=== PATIENT | female | born 1950 | race Caucasian/White ===

== ENCOUNTER → 2018-02-20 | Outpatient (CLI) | payer MEDICARE ==
--- NOTE | 2018-02-20 14:34 | CT ---
EXAMINATION TYPE: CT abdomen pelvis wo con DATE OF EXAM: 02/20/2018 HISTORY: Hematuria and right lower quadrant pain per order CT DLP: 567 mGycm. Automated Exposure Control for Dose Reduction was Utilized. TECHNIQUE: CT scan of the abdomen and pelvis is performed without oral or IV contrast. COMPARISON: NONE FINDINGS: Within the limitations of a non-contrast study, the following observations are made. LUNG BASES: No significant abnormality is appreciated. LIVER/GB: Cholecystectomy clips are felt present near maggy hepatis. Prominent right hepatic lobe is seen, normal variant. PANCREAS: Poor visualization of pancreas which appears somewhat heterogeneous on noncontrast study. SPLEEN: No significant abnormality is seen. ADRENALS: Low dense thickening to both adrenal glands favors benign hyperplasia.. KIDNEYS: Symmetric central calcifications of both kidneys, favor vascular calcification, cannot exclu de nonobstructing renal calculi. No hydronephrosis or obstructing ureter calculi clearly seen. Phlebo liths along course of ureters are present. BOWEL: Diverticula are scattered throughout the colon. No CT evidence for acute diverticulitis. Cecum is low lying and wandering into the left pelvis. No suspicious small bowel dilatation is present. GENITAL ORGANS: Uterus is surgically absent or markedly atrophic. Scattered prominent pelvic phleboli ths are seen bilaterally. LYMPH NODES: No greater than 1cm abdominal or pelvic lymph nodes are appreciated. OSSEOUS STRUCTURES: Moderate narrowing and bilateral hip joints is present. Moderate disc space narro wing lumbosacral junction is seen. OTHER: Inferior and posterior to the coccyx there is prominent rounded hypodense material probable ca lcification, distal coccyx is sclerotic. Etiology uncertain. Perhaps dystrophic calcifications or sof t tissue foreign body, injection granulomas unlikely but not excluded. Moderate to severe calcified p laque of aorta extends into branch vessels. IMPRESSION: 1. Cannot exclude bilateral nonobstructing renal calculi versus vascular calcifications. Follow-up CT urogram could be performed to further assess if desired. 2. Colonic diverticulosis without convincing CT evidence for acute diverticulitis.
== END | disposition home or self-care (01) ==
LOC: RADCTMAIN 13:45
PROVIDERS: ATTEND Nurse Practitioner
DX: K57.30 Diverticulosis of large intestine without perforation or abscess without bleeding (principal)
CPT/HCPCS: 74176

== ENCOUNTER 2018-08-25 20:12 | Emergency (ER) | payer MEDICARE ==
[2018-08-25 20:29] VITALS: BP 119/73; PULSE 70; RESP 18; TEMP 99.9
[2018-08-25 21:28] LABS: Appearance,Urine Cloudy (Clear); Bilirubin,Urine Negative (Negative); Blood,Urine Large (Negative); Color,Urine Dark Red; Glucose,Urine (UA) Negative (Negative); Ketones,Urine Negative (Negative); Leukocyte Esterase,Urine Moderate (Negative); Nitrite,Urine Negative (Negative); PH, Urine 6.5 (5.0-8.0); Protein,Urine 2+ (Negative); RBC,Urine >182 /hpf (0-5); Specific Gravity,Urine 1.014 (1.001-1.035); Squamous Epithelial Cell,Urine 2 /hpf (0-4); Urobilinogen,Urine <2.0 mg/dL (<2.0)
--- NOTE | 2018-08-25 21:28 | ED ---
Female Urogenital HPI - General Chief complaint: Vaginal Bleeding Stated complaint: Blood in urine Time Seen by Provider: 08/25/18 21:24 Source: patient Mode of arrival: ambulatory Limitations: no limitations - History of Present Illness Initial comments: Martha is a 68-year-old female presents the emergency department today for reevaluation of hematuria. Patient was seen and evaluated by her primary care physician on Saturday at which time she was diagnosed with a urinary tract infection and prescribed Bactrim, patient took this on Saturday and throughout the weekend however today she developed hematuria and followed up with her PCP again. At this time repeat urinalysis was obtained by the PCP and she was prescribed Macrobid. Patient has taken one dose of Macrobid however she's noticed clots in her urine which prompted her to come to the ER for reevaluation. Patient denies any associated fevers, chills, flank pain, nausea or vomiting. - Related Data Home Medications Medication Instructions Recorded Confirmed Atorvastatin [Lipitor] 10 mg PO HS 01/06/14 08/25/18 Lisinopril [Zestril] 10 mg PO HS 01/06/14 08/25/18 Loperamide [Imodium] 4 mg PO Q4H PRN 01/06/14 08/25/18 metFORMIN HCL [Glucophage] 500 mg PO HS 01/06/14 08/25/18 Acetaminophen [Tylenol] 1,000 mg PO Q4-6H PRN 08/25/18 08/25/18 Aspirin EC [Ecotrin Low Dose] 81 mg PO DAILY 08/25/18 08/25/18 Nitrofurantoin Monohyd/M-Cryst 100 mg PO Q12HR 08/25/18 08/25/18 [Macrobid] amLODIPine BESYLATE [Norvasc] 10 mg PO HS 08/25/18 08/25/18 Allergies Allergy/AdvReac Type Severity Reaction Status Date / Time No Known Allergies Allergy Verified 08/25/18 21:51 Review of Systems ROS Statement: Those systems with pertinent positive or pertinent negative responses have been documented in the HPI. ROS Other: All systems not noted in ROS Statement are negative. Past Medical History Past Medical History: Diabetes Mellitus, Hypertension Additional Past Medical History / Comment(s): ANAL CANCER-CHEMO & RADIATION 1995, History of Any Multi-Drug Resistant Organisms: None Reported Past Surgical History: Bowel Resection, Cholecystectomy, Hysterectomy Past Anesthesia/Blood Transfusion Reactions: No Reported Reaction Past Psychological History: No Psychological Hx Reported Smoking Status: Current every day smoker Past Alcohol Use History: Rare Past Drug Use History: None Reported General Exam - General Exam Comments Initial Comments: Physical Exam GENERAL: Patient is well-developed and well-nourished. Patient is nontoxic and well- hydrated and is in no distress. HENT: Normocephalic, Atraumatic. EYES: PERRL, EOMI PULMONARY: Unlabored respirations. No audible rales rhonchi or wheezing was noted. CARDIOVASCULAR: There is a regular rate and rhythm without any murmurs gallops or rubs. ABDOMEN: Soft and nontender with normal bowel sounds. Tenderness to palpation in suprapubic region SKIN: Skin is clear with no lesions or rashes and otherwise unremarkable. : Deferred NEUROLOGIC: Patient is alert and oriented x3. Moving all extremities spontaneously MUSCULOSKELETAL: Normal extremities with adequate strength and full range of motion. No lower extremity swelling or edema. No calf tenderness. PSYCHIATRIC: Normal psychiatric evaluation Limitations: no limitations Course Vital Signs 08/25/18 20:25 Temperature 99.9 F H Pulse Rate 70 Respiratory 18 Rate Blood Pressure 119/73 O2 Sat by Pulse 97 Oximetry Medical Decision Making - Medical Decision Making I attempted to evaluate the patient multiple times. Each time she was noted to be in the restroom, upon my evaluation the patient reports that she has continuous sensation of needing to urinate. She is producing grossly bloody urine. Patient denies any vaginal bleeding or bleeding from the vaginal canal. Repeat urinalysis here is consistent with urinary tract infection with gross hematuria, culture was obtained A single dose of Rocephin will be given as well as by mouth Pyridium, patient has tolerated this in the past but was unaware if she could take it in the setting She reported resolution of her urinary frequency and dysuria after taking Pyridium. She does have Pyridium at home does not need a prescription. At this time patient stable for discharge home and outpatient follow-up. She will contact her PCP tomorrow to follow up on urine culture results from Saturday. - Lab Data Lab Results 08/25/18 Range/Units 20:29 Urine Color Dark Red Urine Appearance Cloudy H (Clear) Urine pH 6.5 (5.0-8.0) Ur Specific [place] 1.014 (1.001-1.035) Urine Protein 2+ H (Negative) Urine Glucose (UA) Negative (Negative) Urine Ketones Negative (Negative) Urine Blood Large H (Negative) Urine Nitrite Negative (Negative) Urine Bilirubin Negative (Negative) Urine Urobilinogen <2.0 (<2.0) mg/dL Ur Leukocyte Esterase Moderate H (Negative) Urine RBC >182 H (0-5) /hpf Urine WBC 104 H (0-5) /hpf Ur Squamous Epith Cells 2 (0-4) /hpf Disposition Clinical Impression: Urinary tract infection with hematuria Disposition: HOME SELF-CARE Condition: Stable Instructions (If sedation given, give patient instructions): Urinary Tract Infection in Women (DC) Is patient prescribed a controlled substance at d/c from ED?: No Referrals: Shanon Gauthier DO [Primary Care Provider] - 1-2 days
[2018-08-25] MEDS ORDERED: SODIUM CHLORIDE 0.9% 500 ML 500 ML IV ONE (22:31)
[2018-08-25] MEDS ORDERED: cefTRIAXone IN SWFI 1,000 MG/10 ML SYRINGE IVP STA (22:31)
[2018-08-25] MEDS ORDERED: PHENAZOPYRIDINE 100 MG TAB PO STA (22:34)
== END 2018-08-25 23:53 | disposition home or self-care (01) ==
LOC: EC 20:12
DX: N39.0 Urinary tract infection, site not specified (principal); E11.9 Type 2 diabetes mellitus without complications; I10 Essential (primary) hypertension; F17.200 Nicotine dependence, unspecified, uncomplicated; Z85.048 Personal history of other malignant neoplasm of rectum, rectosigmoid junction, and anus; Z79.82 Long term (current) use of aspirin; Z79.84 Long term (current) use of oral hypoglycemic drugs; Z79.899 Other long term (current) drug therapy; Z90.710 Acquired absence of both cervix and uterus
CPT/HCPCS: 81001; 87086; 99284; 96374; J0696

== ENCOUNTER → 2018-09-01 | Outpatient (CLI) | payer MEDICARE ==
--- NOTE | 2018-09-01 13:58 | US ---
EXAMINATION TYPE: US carotid duplex BILAT DATE OF EXAM: 09/01/2018 COMPARISON: NONE CLINICAL HISTORY: R42. Dizziness Giddiness. Left facial numbness then has syncopal episode x 2 episo nasir in past 6 months; smoker x 54 years EXAM MEASUREMENTS: RIGHT: Peak Systolic Velocity (PSV) cm/sec ----- Right CCA: 82.3 ----- Right ICA: 82.4 ----- Right ECA: 199.6 ICA/CCA ratio: 1.1 RIGHT: End Diastole cm/sec ----- Right CCA: 32.8 ----- Right ICA: 25.6 ----- Right ECA: 21.2 LEFT: Peak Systolic Velocity (PSV) cm/sec ----- Left CCA: 83.2 ----- Left ICA: 93.5 ----- Left ECA: 162.7 ICA/CCA ratio: 1.1 LEFT: End Diastole cm/sec ----- Left CCA: 33.9 ----- Left ICA: 39.7 ----- Left ECA: 20.9 VERTEBRALS (direction of flow): Right Vertebral: Antegrade Left Vertebral: Antegrade Rhythm: Normal Moderate, irregular mixed plaque is noted at bilateral carotid bifurcation with abnormally elevated P SV in Bilateral ECA. IMPRESSION: No hemodynamically significant stenosis within either internal carotid artery nor common carotid artery however moderate grayscale plaquing is seen at the carotid bulbs creating bilateral s tenosis of 50-69% within the external carotid arteries. Criteria for Assigning % of Stenosis / Diameter reduction (Estimation based on the indirect measurements of the internal carotid artery velocities (ICA PSV). 1. Normal (no stenosis)=ICA PSV < 125 cm/s: ratio < 2.0: ICA EDV<40 cm/s. 2. Less than 50% stenosis=ICA PSV < 125 cm/s: ratio < 2.0: ICA EDV<40 cm/s. 3. 50 to 69% stenosis=ICA PSV of 125 to 230 cm/s: ration 2.0 ? 4.0: ICA EDV 40-100 cm/s. 4. Greater than 70% stenosis to near occlusion= ICA PSV > 230 cm/s: ratio > 4.0: ICA EDV > 100 cm/s. 5. Near occlusion= ICA PSV velocities may be low or undetectable: variable ratio and ICA EDV. 6. Total occlusion=unable to detect flow.
== END | disposition home or self-care (01) ==
LOC: RADUSWWP 12:22
PROVIDERS: ATTEND Family Medicine
DX: I65.23 Occlusion and stenosis of bilateral carotid arteries (principal)
CPT/HCPCS: 93880

== ENCOUNTER → 2018-10-01 | Outpatient (CLI) | payer MEDICARE ==
--- NOTE | 2018-10-01 19:47 | CT ---
EXAMINATION TYPE: CT urogram wo/w con DATE OF EXAM: 10/01/2018 HISTORY: Gross hematuria and low back pain. CT DLP: 2779mGycm Automated Exposure Control for Dose Reduction was Utilized. CONTRAST: CT scan of the abdomen and pelvis is performed without and with IV Contrast, patient injected with 10 0ml mL of Isovue 300. COMPARISON: 02/20/2018 FINDINGS: LUNG BASES: No significant abnormality is appreciated. LIVER/GB: Postcholecystectomy changes noted with mild central intrahepatic dilation.. PANCREAS: No significant abnormality is seen. SPLEEN: No significant abnormality is seen. ADRENALS: No significant abnormality is seen. KIDNEYS: There are no renal masses. Right kidney: There is 5 calcifications involving the right kidney with no hydronephrosis the largest measures a diameter of 2 mm. Left kidney: There are 4 3 mm or less left-sided renal calculi with no hydronephrosis. Ureters: Ureters appear to be of normal course and caliber with no evidence of filling defect. Bladder: Delayed imaging demonstrates incompletely distended bladder. This limits assessment of wall thickness. No evidence of filling defect as visualized. BOWEL: There are few prominent small bowel loops which are fluid-filled within the pelvis. Diverticul osis of the colon noted. LYMPH NODES: No greater than 1cm abdominal or pelvic lymph nodes are appreciated. OSSEOUS STRUCTURES: Degenerative change of the spine and arthropathy of the hips. There is dense calcification at the level of the coccyx. This extends into the soft tissues and measu res approximately 3.7 cm. This is stable. Tarlov cyst involving the sacrum noted. OTHER: There is atherosclerotic changes aorta with no evidence of aneurysm. Atherosclerotic change of the SMA seen with eccentric plaque. Significant stenosis is not excluded.. Uterus is surgically abse nt. IMPRESSION: 1. Bilateral nonobstructing nephrolithiasis. Calcifications measure in diameter less than 5 mm. 2. Large area of calcification near the lower margin of the coccyx is stable relative the prior exam could represent dystrophic calcification from prior injury or infection. Correlate with point tendern ess. If the patient experiences pain in this region consider MRI of the sacrum and coccyx. 3. Postcholecystectomy changes. 4. Eccentric atherosclerotic plaque involving the SMA. Significant stenosis in the differential diagn osis. 5. Fluid-filled prominent small bowel loops in the pelvis may represent an ileus correlate clinically to exclude enteritis.
== END | disposition home or self-care (01) ==
LOC: RADCTMAIN 16:00
PROVIDERS: ATTEND Urology
DX: N20.0 Calculus of kidney (principal); R31.0 Gross hematuria
CPT/HCPCS: 36415; 74178; 74400; 82565; 84520

== ENCOUNTER 2019-03-12 07:31 | Day surgery (SDC) | payer MEDICARE ==
[~2019-03-12 07:31] MED LIST: LACTATED RINGERS 1,000 ML IV SCH; LIDOCAINE 1% 20 ML VIAL (10MG/ML) FOR IV START INTRADERMA PRN
[2019-03-12 07:54] VITALS: TEMP 97.6
[2019-03-12 08:02] LABS: Glucose,Whole Blood 136 mg/dL (75-99)
[2019-03-12] MEDS ORDERED: PROPOFOL 10 MG/ML 20 ML VIAL IV ONE (08:15)
[2019-03-12 09:01] VITALS: RESP 14
--- NOTE | 2019-03-12 09:01 | P.PCN ---
Date of Procedure: 03/12/19 Description of Procedure: BRIEF HISTORY: Patient is a 68-year-old female presenting for outpatient colonoscopy for a personal history of colon polyps. Patient reports polypectomy on previous colonoscopies. Last colonoscopy 5 years ago. No change in bowel habits, blood per rectum or abdominal pain reported. PROCEDURE PERFORMED: Colonoscopy with polypectomy. PREOPERATIVE DIAGNOSIS: Personal history of colon polyps, last colonoscopy 5 years ago. ESTIMATED BLOOD LOSS: Minimal. IV sedation per Anesthesia. PROCEDURE: After informed consent was obtained, the patient, was brought into the endoscopy unit. IV sedation was administered by Anesthesia under continuous monitoring. Digital rectal examination was normal. Initially the Olympus CF-190 flexible video colonoscope was then inserted in the rectum, gradually advanced into the cecum without any difficulty. Careful examination was performed as the scope was gradually being withdrawn. Ileocecal valve and the appendiceal orifice were visualized and appeared normal. Prep was excellent. Mucosa of the cecum, ascending colon, transverse colon, descending colon, sigmoid colon, and rectum appeared normal. Moderate pandiverticulosis noted. Flat 3 mm cecal polyp removed with cold forcep polypectomy. 12 mm sessile ascending colon polyp removed with cold snare polypectomy. Diminutive 1 mm hepatic flexure polyp removed with cold forcep polypectomy. Retroflexion was performed in the rectum and no lesions were seen. The patient tolerated the procedure well. IMPRESSION: 2 polyps removed from the cecum and hepatic flexure with cold forcep polypectomy. 12 mm ascending colon polyp removed with cold snare polypectomy. Moderate pandiverticulosis. RECOMMENDATIONS: Findings of this examination were discussed with the patient her sister. Okay to resume diet. Okay to resume medications. Await pathology from polypectomies. Recommend repeat colonoscopy in 3 years for high risk colon polyps.
[2019-03-12 09:15] VITALS: BP 121/70; PULSE 60
== END 2019-03-12 09:34 | disposition home or self-care (01) ==
LOC: ORWHC2ENDO 07:31
PROVIDERS: ATTEND Internal Medicine
DX: D12.2 Benign neoplasm of ascending colon (principal); D12.0 Benign neoplasm of cecum; D12.3 Benign neoplasm of transverse colon; K57.30 Diverticulosis of large intestine without perforation or abscess without bleeding; Z86.010 Personal history of colon polyps; I10 Essential (primary) hypertension; E78.5 Hyperlipidemia, unspecified; E11.9 Type 2 diabetes mellitus without complications; C67.9 Malignant neoplasm of bladder, unspecified; Z72.0 Tobacco use; Z79.84 Long term (current) use of oral hypoglycemic drugs; Z79.899 Other long term (current) drug therapy; Z79.82 Long term (current) use of aspirin; Z79.891 Long term (current) use of opiate analgesic; Z90.49 Acquired absence of other specified parts of digestive tract; Z90.710 Acquired absence of both cervix and uterus; Z98.890 Other specified postprocedural states; Z97.2 Presence of dental prosthetic device (complete) (partial)
CPT/HCPCS: 88305; 45380; 45385; J2704

== ENCOUNTER → 2019-04-14 | Outpatient (CLI) | payer MEDICARE ==
--- NOTE | 2019-04-15 09:18 | BD ---
EXAMINATION TYPE: Axial Bone Density DATE OF EXAM: 04/14/2019 COMPARISON: 05/18/2014 CLINICAL HISTORY: Z 78.0 Height: 63 IN Weight: 183 LBS FRAX RISK QUESTIONS: Secondary Osteoporosis: 3. Menopause before 45: TOTAL HYST AGE 21 Current Tobacco Use: YES RISK FACTORS HISTORY OF: Active: YES Diet low in dairy products/other sources of calcium: YES Postmenopausal woman: TOTAL HYST AGE 21 Take estrogen and/or progesterone medications: NOT NOW How long: TOOK CONTROL FOR 2 YEARS MEDICATIONS: Additional Medications: METFORMIN,BLOOD PRESSURE MEDS, DIABETES MEDS Additional History: COLON CANCER WITH CHEMO AND RADIATION; BLADDER CANCER WITH RADIATION EXAM MEASUREMENTS: Bone mineral densitometry was performed using the DWNLD System. Bone mineral density as measured about the Lumbar spine is: ----- L1-L4(G/cm2): 1.219 T Score Values are as follows: ----- L2: 0.2 ----- L3: 0.3 ----- L4: 1.1 ----- L1-L4: 0.3 Bone mineral density has: Decreased -3.7% since study of: 05/18/2014 Bone mineral density about the R hip (g/cm2): 0.680 Bone mineral density about the L hip (g/cm2): 0.730 T Score values are as follows: -----R Neck: -2.6 -----L Neck: -2.4 -----R Total: -2.3 -----L Total: -2.2 Bone mineral density has: Decreased -9.9% since study of: 05/18/2014 IMPRESSION: Osteoporosis (T Score less than -2.5). There is increased fracture risk and therapy is usually indicated based on age. Re-Screen 1-2 years. NOTE: T-SCORE=SD OF THE YOUNG ADULT MEAN.
--- NOTE | 2019-04-15 11:34 | MM ---
Reason for exam: screening (asymptomatic). Last mammogram was performed 4 years and 11 months ago. History: Patient is postmenopausal, has history of other cancer at age 68, and has history of colon cancer at age 31. Took hormonal contraceptives for 2 years. Physical Findings: A clinical breast exam by your physician is recommended on an annual basis and results should be correlated with mammographic findings. MG 3D Screening Mammo W/Cad Bilateral CC and MLO view(s) were taken. Prior study comparison: May 18, 2014, bilateral MG screening mammo w CAD. The breast tissue is almost entirely fat. No significant changes when compared with prior studies. ASSESSMENT: Benign, BI-RAD 2 RECOMMENDATION: Routine screening mammogram of both breasts in 1 year.
== END ==
LOC: RADMAMWWP 14:44
PROVIDERS: ATTEND Family Medicine
DX: Z12.31 Encounter for screening mammogram for malignant neoplasm of breast (principal); M81.0 Age-related osteoporosis without current pathological fracture; Z78.0 Asymptomatic menopausal state
CPT/HCPCS: 77063; 77067; 77080

== ENCOUNTER → 2019-04-22 | Outpatient (CLI) | payer MEDICARE ==
[~2019-04-22] MED LIST changes: -LACTATED RINGERS 1,000 ML IV SCH; -LIDOCAINE 1% 20 ML VIAL (10MG/ML) FOR IV START INTRADERMA PRN; +REGADENOSON 0.4 MG/5 ML SYRINGE IV ONE
--- NOTE | 2019-04-22 12:23 | EST ---
EXERCISE STRESS DATE OF SERVICE: 04/22/2019 AGE: 69 SEX: Female HT: 5'2" WT: 183 pounds PROTOCOL: Lexiscan Cardiolite STAGE: DURATION OF EXERCISE: HEART RATE REST: 56 BLOOD PRESSURE REST: 107/56 MAXIMUM HEART RATE ACHIEVED: 82 MAXIMUM BLOOD PRESSURE: 111/51 85% MPHR: 128 100% MPHR: 150 METS: INDICATIONS: Chest pain. CLINICAL INFORMATION: This is an Lexiscan stress test. Baseline heart rate 56 beats per minute. Baseline blood pressure 107/56 mmHg. Baseline 12-lead ECG shows sinus rhythm with normal ST segments. The patient received Lexiscan infusion per protocol. No significant change in heart rate or blood pressure. Occasional PVCs noted. No nonsustained ventricular tachycardia. No evidence for ischemia. Nuclear portion will be reported separately. MMODL / IJN: [id number] /
--- NOTE | 2019-04-22 13:26 | NM ---
EXAMINATION TYPE: NM stress lexiscan cardiolite DATE OF EXAM: 04/22/2019 COMPARISON: NONE HISTORY: Carotid bruit TECHNIQUE: After the intravenous administration of 9.3 mCi Tc 99m Sestamibi - Cardiolite resting SPE CT images acquired 75 minutes post injection. The patient received 0.4mg Lexiscan, 24.9 mCi Tc 99m Sestamibi - Stress images obtained [address] injection FINDINGS: No fixed or reversible perfusion defects are evident. Gated wall motion is normal. Ejection fraction of 66% is normal. Polar maps suggest a septal wall defect not identified on the SPECT imaging. IMPRESSION: 1. No stress-induced ischemic changes.
== END | disposition home or self-care (01) ==
LOC: RADNMMAIN 07:53
PROVIDERS: ATTEND Family Medicine
DX: R07.89 Other chest pain (principal)
CPT/HCPCS: 93017; 78452; A9500; J2785

== ENCOUNTER → 2019-10-01 | Outpatient (CLI) | payer MEDICARE ==
--- NOTE | 2019-10-01 14:04 | US ---
EXAMINATION TYPE: US carotid duplex BILAT DATE OF EXAM: 10/01/2019 COMPARISON: US 09/01/2018 CLINICAL HISTORY: R42 Dizziness. EXAM MEASUREMENTS: RIGHT: Peak Systolic Velocity (PSV) cm/sec ----- Right CCA: 80.8 ----- Right ICA: 95.3 ----- Right ECA: 244.4 ICA/CCA ratio: 1.2 RIGHT: End Diastole cm/sec ----- Right CCA: 27.0 ----- Right ICA: 34.4 ----- Right ECA: 34.3 LEFT: Peak Systolic Velocity (PSV) cm/sec ----- Left CCA: 76.2 ----- Left ICA: 121.4 ----- Left ECA: 161.3 ICA/CCA ratio: 1.6 LEFT: End Diastole cm/sec ----- Left CCA: 28.6 ----- Left ICA: 36.6 ----- Left ECA: 35.2 VERTEBRALS (direction of flow): Right Vertebral: Antegrade Left Vertebral: Antegrade Rhythm: Heart rate may be changing during exam, correlate for arrhythmia Grayscale, color Doppler, spectral Doppler imaging performed of the carotid arteries. Waveform analys is does not show significant stenosis of the internal carotid arteries. Moderate amount of plaque vis ualized bilaterally. Elevated velocities visualized within the right ECA and left ECA IMPRESSION: No hemodynamic significant stenosis of the proximal internal carotid arteries by Doppler criteria, an indirect measurement of carotid stenosis Criteria for Assigning % of Stenosis / Diameter reduction (Estimation based on the indirect measurements of the internal carotid artery velocities (ICA PSV). 1. Normal (no stenosis)=ICA PSV < 125 cm/s: ratio < 2.0: ICA EDV<40 cm/s. 2. Less than 50% stenosis=ICA PSV < 125 cm/s: ratio < 2.0: ICA EDV<40 cm/s. 3. 50 to 69% stenosis=ICA PSV of 125 to 230 cm/s: ration 2.0 ? 4.0: ICA EDV 40-100 cm/s. 4. Greater than 70% stenosis to near occlusion= ICA PSV > 230 cm/s: ratio > 4.0: ICA EDV > 100 cm/s. 5. Near occlusion= ICA PSV velocities may be low or undetectable: variable ratio and ICA EDV. 6. Total occlusion=unable to detect flow.
== END | disposition home or self-care (01) ==
LOC: RADUSWWP 12:16
PROVIDERS: ATTEND Family Medicine
DX: R42 Dizziness and giddiness (principal)
CPT/HCPCS: 93880

== ENCOUNTER 2019-10-23 08:50 | Day surgery (SDC) | payer MEDICARE ==
[2019-10-23] MEDS ORDERED: ALPRAZolam 0.25 MG TAB PO ONE (09:13)
[2019-10-23 09:20] VITALS: TEMP 98
[2019-10-23 09:50] LABS: Glucose,Whole Blood 150 mg/dL (75-99)
[2019-10-23 11:58] VITALS: BP 99/68; PULSE 62; RESP 16
--- NOTE | 2019-10-23 14:35 | US ---
EXAMINATION TYPE: US FNA DATE OF EXAM: 10/23/2019 COMPARISON: Outside institution CT neck 09/22/2019 HISTORY: Right parotid mass Preprocedure preliminary ultrasound imaging demonstrates a 1.4 x 2.8 x 1.5 cm hypoechoic ovoid mass within the right parotid gland, with evidence of internal color Doppler flow. The procedure was discussed with the patient. The risks, complications, benefits, and alternatives were discussed and any questions were answered. Informed consent was obtained. The patient was placed supine on the ultrasound table and prepped and draped in the usual sterile fashion. Maximal barrier technique was utilized. Ultrasound using sterile technique. The skin overlying the right parotid mass was localized with ultrasound and the overlying skin prepped and draped. Lidocaine used for local anesthesia. 4 passes with a 25-gauge needle were made into the mass under ultrasound guidance. Preliminary assessment by the pathologist demonstrated appropriate cellular tissue, with request for 2 additional passes for cell block. 2 additional passes with a 25-gauge needle were made into the mass under ultrasound guidance, for a total of 6 passes. Aspirate specimen submitted to cytology. Following the procedure hemostasis achieved. Small hematoma at the access site. IMPRESSION: Status post ultrasound-guided fine-needle aspiration of thyroid nodule, pathology pending. [facility]
== END 2019-10-23 11:45 | disposition home or self-care (01) ==
LOC: RADPROMAIN 08:50
PROVIDERS: ATTEND Otolaryngology
DX: K11.8 Other diseases of salivary glands (principal); R89.7 Abnormal histological findings in specimens from other organs, systems and tissues
CPT/HCPCS: 10005; 42400; 76942; 88173; 88305

== ENCOUNTER → 2020-04-29 | Outpatient (CLI) | payer MEDICARE ==
--- NOTE | 2020-04-29 14:22 | US ---
EXAMINATION TYPE: US thyroid st tissue head/neck DATE OF EXAM: 04/29/2020 COMPARISON: CT soft tissue neck 09/22/2019 CLINICAL HISTORY: K11.8 RT PAROTID MASS. Known right parotid mass with h/o FNA 6 months ago, benign 2.9 x 1.7 x 2.2cm complex parotid lesion that has increased vascularity. This appears slightly hypoec hoic. IMPRESSION: Hypoechoic mass within the right parotid region
== END | disposition home or self-care (01) ==
LOC: RADUSWWP 13:32
PROVIDERS: ATTEND Otolaryngology
DX: K11.8 Other diseases of salivary glands (principal)
CPT/HCPCS: 76536